=== PATIENT | female | born 1985 | race Caucasian/White ===

== ENCOUNTER → 2016-09-15 | Outpatient (REF) | payer OTHER ==
[~2016-09-15] MED LIST: BUPR150T11 PO; BUPR150T2 PO; BUPR75TA5 PO; Birth Control PO; EFFEXOR XR PO
[2016-09-15 19:43] LABS: ALBUMIN 3.3 GM/DL (3.2-5.2); ALBUMIN/GLOBULIN RATIO 0.92 (1.00-1.93); ALKALINE PHOSPHATASE 53 U/L (45-117); ALT/SGPT 23 U/L (12-78); ANION GAP 6 MEQ/L (8-16); AST/SGOT 14 U/L (15-37); BILIRUBIN,TOTAL 0.4 MG/DL (0.2-1.0); BLOOD UREA NITROGEN 8 MG/DL (7-18); CALCIUM LEVEL 8.5 MG/DL (8.5-10.1); CARBON DIOXIDE LEVEL 28 MEQ/L (21-32); CHLORIDE LEVEL 106 MEQ/L (98-107); CREATININE FOR GFR 0.86 MG/DL (0.55-1.02); GLOMERULAR FILTRATION RATE > 60.0 (>60); GLUCOSE, FASTING 78 MG/DL (70-105); SODIUM LEVEL 140 MEQ/L (136-145); TOTAL PROTEIN 6.9 GM/DL (6.4-8.2)
== END ==
LOC: M SFHCCLAY 13:46
PROVIDERS: ATTEND Nurse Practitioner Family
DX: R61 Generalized hyperhidrosis (principal)

== ENCOUNTER → 2016-10-08 | Outpatient (CLI) | payer OTHER ==
--- NOTE | 2016-10-14 08:05 | SLEEPHOME ---
DATE OF PROCEDURE: 10/08/2016 ORDERED BY: Liz Greenfield. INTERPRETATION: Diagnostic home sleep testing was performed due to concern for the obstructive sleep apnea syndrome in this patient with a history of snoring and nonrestorative sleep. For testing, a NOX-T3 respiratory monitoring device was used. Continuous record was made of pulse, oxygen saturation, air flow, chest and abdominal strain, and body position. 10 hours and 59 minutes of data were reviewed. There were 5 hours and 55 minutes marked as time in bed. During the interval marked time in bed, there were only 5 respiratory events identified of 10 seconds in duration or greater for a respiratory event index of 0.8 which is within normal limits. Patient's baseline pulse rate was 58 beats per minute. Pulse rate ranged 49-80. Baseline saturation 95%. Lowest oxygen desaturation 90%. Testing was performed in both the supine and non-supine positions. IMPRESSION: Abnormal diagnostic home sleep testing with no evidence of obstructive sleep apnea syndrome demonstrated.
== END ==
LOC: M SLEEP HO 14:25
PROVIDERS: ATTEND Nurse Practitioner Adult Health
DX: G47.30 Sleep apnea, unspecified (principal)

== ENCOUNTER → 2017-09-23 | Outpatient (CLI) | payer OTHER | LOC: M LAB 10:21 | DX: Z80.3 Family history of malignant neoplasm of breast (principal) | CPT/HCPCS: 36415 ==

== ENCOUNTER 2020-03-16 10:16 | Emergency (ER) | payer OTHER ==
[~2020-03-16] VITALS: Ht 154.9 cm; Wt 75.9 kg
[2020-03-16] MEDS ORDERED: ZOLO100T PO (10:29)
[2020-03-16] MEDS ORDERED: CYCL-707 PO (10:29)
[2020-03-16] MEDS ORDERED: NORC1TAB7 PO (10:29)
[2020-03-16] MEDS ORDERED: KETOROLAC 30 MG/ML 1ML VIAL IV ONE (11:30)
--- NOTE | 2020-03-16 13:28 | REPVR ---
PROCEDURE INFORMATION: Exam: MR Lumbar Spine Without Contrast. Exam date and time: 03/16/2020 12:52 PM Age: 34 years old Clinical indication: Low back pain; Patient HX: Per p/t, was lifting yesterday and had instant pain/spasms, HX of back issues; Additional info: Back pain/leg weakness TECHNIQUE: Imaging protocol: Multiplanar magnetic resonance images of the lumbar spine without intravenous contrast. COMPARISON: No relevant prior studies available. FINDINGS: Vertebrae: The lumbar vertebral bodies are normal in height,signal intensity and alignment.No acute fracture or dislocation is seen. Spinal epidural space: There is no evidence of epidural masses or hemorrhage. Spinal cord: The conus medullaris is normal. The cauda equina nerve roots demonstrate no crowding or displacement. L1-L2: There is no significant degenerative disc herniation.The spinal canal and neural foramina are patent and without significant stenosis. L2-L3: Mildly reduced in height and T2 signal indicating degeneration. Moderate posterior central herniation causing compression on the thecal sac with moderate central spinal canal stenosis. The facet joints demonstrate mild degenerative hypertrophy and sclerosis.There is mild bilateral foraminal stenosis. L3-L4: Mildly reduced in height and T2 signal indicating degeneration. Small posterior central protrusion with inferior migration causing mild indentation of the thecal sac. Mild facet arthropathy.There is no evidence of spinal canal narrowing. There is mild bilateral foraminal stenosis. L4-L5: Moderately reduced in height and T2 signal indicating degeneration. Mild degenerative endplate changes. Small diffuse posterior herniation, asymmetric towards the left. Mild facet arthropathy.There is no evidence of spinal canal narrowing. There is mild right foraminal stenosis. There is moderate left foraminal stenosis. L5-S1: Moderately reduced in height and T2 signal indicating degeneration. Moderate adjacent degenerative endplate changes. Small diffuse posterior herniation. Mild facet arthropathy.There is no evidence of spinal canal narrowing. There is mild bilateral foraminal stenosis. Soft tissues: The prevertebral soft tissues appear normal. IMPRESSION: MRI of the lumbar spine reveals multilevel degenerative spondylitic changes and degenerative disc disease as described above. Electronically signed by: Bairon Hauser On 03/16/2020 13:28:22 PM
[2020-03-16 14:23] VITALS: BP 100/59
== END 2020-03-16 14:25 | disposition home or self-care (01) ==
LOC: M ED 10:16
DX: M51.26 Other intervertebral disc displacement, lumbar region (principal); M51.36 Other intervertebral disc degeneration, lumbar region; M54.9 Dorsalgia, unspecified; G89.29 Other chronic pain; Z88.2 Allergy status to sulfonamides; Z88.1 Allergy status to other antibiotic agents; Z79.899 Other long term (current) drug therapy
CPT/HCPCS: 72148; 96374; 99284; J1885

== ENCOUNTER → 2022-08-21 | Outpatient (REF) | payer OTHER ==
[~2022-08-21] MED LIST changes: +CYCL-707 PO; +NORC1TAB7 PO; +ZOLO100T PO
[2022-08-21 17:29] LABS: HEMATOCRIT 37.2 % (36.0-47.0); HEMOGLOBIN 11.2 g/dl (12.0-15.5); MEAN CORPUSCULAR HEMOGLOBIN 27.1 pg (27.0-33.0); MEAN CORPUSCULAR HGB CONC 30.1 g/dl (32.0-36.5); MEAN CORPUSCULAR VOLUME 90.1 fl (80.0-96.0); PLATELET COUNT, AUTOMATED 323 10^3/uL (150-450); RED BLOOD COUNT 4.13 10^6/uL (4.00-5.40); WHITE BLOOD COUNT 7.5 10^3/uL (4.0-10.0)
[2022-08-21 17:53] LABS: FREE T4 0.87 NG/DL (0.89-1.76); VITAMIN B12 LEVEL 283 PG/ML (211-911)
[2022-08-21 17:54] LABS: THYROID STIMULATING HORMONE 1.922 uIU/ML (0.55-4.78)
[2022-08-21 17:56] LABS: IRON (FE) 33 UG/DL (50-170); PERCENT SATURATION 7.3 % (13.2-45.0); TOTAL IRON BINDING CAPACITY 453 UG/DL (250-425)
[2022-08-21 17:57] LABS: ALBUMIN 3.3 G/DL (3.2-5.2); ALKALINE PHOSPHATASE 69 U/L (46-116); ALT/SGPT < 9 U/L (7.0-40); AST/SGOT 13 U/L (<34); BILIRUBIN,TOTAL 0.6 MG/DL (0.3-1.2); BLOOD UREA NITROGEN 8 MG/DL (9-23); CALCIUM LEVEL 8.2 MG/DL (8.5-10.1); CARBON DIOXIDE LEVEL 26 MMOL/L (20-31); CHLORIDE LEVEL 107 MMOL/L (98-107); CHOLESTEROL LEVEL 161 MG/DL (<200); CHOLESTEROL RISK RATIO 2.58 (<5); CREATININE FOR GFR 0.72 MG/DL (0.55-1.30); GLOMERULAR FILTRATION RATE > 60.0 (>60); GLUCOSE, FASTING 84 MG/DL (60-100); HDL CHOLESTEROL 62.3 MG/DL (>40); LDL CHOLESTEROL 79.7 MG/DL (<100); NON-HDL-C 98.7 MG/DL; POTASSIUM SERUM 4.3 MMOL/L (3.5-5.1); PTH INTACT 88.3 PG/ML (18.5-88.0); SODIUM LEVEL 139 MMOL/L (136-145); TOTAL PROTEIN 6.8 G/DL (5.7-8.2); TRIGLYCERIDES LEVEL 95 MG/DL (<150)
[2022-08-21 18:25] LABS: HEMOGLOBIN A1c 5.4 % (4.0-6.0)
== END ==
LOC: M SFHCCLAY 09:49
PROVIDERS: ATTEND Family Medicine
DX: R61 Generalized hyperhidrosis (principal); M25.512 Pain in left shoulder; G89.29 Other chronic pain; K91.1 Postgastric surgery syndromes; Z98.84 Bariatric surgery status

== ENCOUNTER → 2022-10-30 | Outpatient (CLI) | payer OTHER | LOC: M CLY 11:12 | PROVIDERS: ATTEND Family Medicine | DX: G89.29 Other chronic pain (principal); M25.512 Pain in left shoulder ==

== ENCOUNTER → 2022-11-25 | Outpatient (CLI) | payer OTHER | LOC: M PLAIMG 14:34 | PROVIDERS: ATTEND Physician Assistant | DX: M25.512 Pain in left shoulder (principal) ==

== ENCOUNTER → 2022-12-30 | Outpatient (REF) | payer OTHER ==
[2022-12-30 18:24] LABS: BASO # 0.1 10^3/uL (0.0-0.2); BASO % 0.6 % (0.0-1.0); EOS # 0.1 10^3/uL (0.0-0.5); EOS % 0.9 % (0.0-3.0); HEMATOCRIT 40.3 % (36.0-47.0); HEMOGLOBIN 12.4 g/dl (12.0-15.5); LYMPH # 2.9 10^3/uL (1.5-5.0); LYMPH % 20.8 % (24.0-44.0); MEAN CORPUSCULAR HEMOGLOBIN 27.9 pg (27.0-33.0); MEAN CORPUSCULAR HGB CONC 30.8 g/dl (32.0-36.5); MEAN CORPUSCULAR VOLUME 90.6 fl (80.0-96.0); MONO % 7.3 % (2.0-8.0); NEUTROPHILS # 9.8 10^3/uL (1.5-8.5); NEUTROPHILS % 69.7 % (36.0-66.0); PLATELET COUNT, AUTOMATED 435 10^3/uL (150-450); RED BLOOD COUNT 4.45 10^6/uL (4.00-5.40)
[2022-12-30 18:46] LABS: PTH INTACT 59.5 PG/ML (18.5-88.0)
[2022-12-30 18:47] LABS: IRON (FE) 74 UG/DL (50-170); PERCENT SATURATION 18.9 % (13.2-45.0); TOTAL IRON BINDING CAPACITY 392 UG/DL (250-425)
[2022-12-30 19:38] LABS: HCG, SERUM QUALITATIVE NEGATIVE (NEGATIVE)
== END ==
LOC: M SFHCCLAY 11:09
PROVIDERS: ATTEND Family Medicine
DX: D72.829 Elevated white blood cell count, unspecified (principal); N91.1 Secondary amenorrhea; Z98.84 Bariatric surgery status

== ENCOUNTER → 2023-02-01 | Outpatient (REF) | payer OTHER ==
[2023-02-01 17:50] LABS: BASO # 0.1 10^3/uL (0.0-0.2); BASO % 0.9 % (0.0-1.0); EOS # 0.2 10^3/uL (0.0-0.5); HEMOGLOBIN 10.8 g/dl (12.0-15.5); LYMPH # 2.3 10^3/uL (1.5-5.0); LYMPH % 31.1 % (24.0-44.0); MEAN CORPUSCULAR HEMOGLOBIN 27.6 pg (27.0-33.0); MEAN CORPUSCULAR VOLUME 91.8 fl (80.0-96.0); MONO # 0.7 10^3/uL (0.0-0.8); MONO % 8.7 % (2.0-8.0); NEUTROPHILS # 4.2 10^3/uL (1.5-8.5); NEUTROPHILS % 56.8 % (36.0-66.0); PLATELET COUNT, AUTOMATED 347 10^3/uL (150-450); RED BLOOD COUNT 3.92 10^6/uL (4.00-5.40); WHITE BLOOD COUNT 7.5 10^3/uL (4.0-10.0)
== END ==
LOC: M SFHCCLAY 11:16
PROVIDERS: ATTEND Nurse Practitioner Family
DX: Z12.4 Encounter for screening for malignant neoplasm of cervix (principal); D72.9 Disorder of white blood cells, unspecified

== ENCOUNTER → 2023-02-05 | Outpatient (REF) | payer OTHER | LOC: M SFHCCLAY 16:58 | PROVIDERS: ATTEND Family Medicine | DX: F32.9 Major depressive disorder, single episode, unspecified (principal); D64.9 Anemia, unspecified ==

== ENCOUNTER 2023-04-18 19:26 | Emergency (ER) | payer OTHER, SELFPAY ==
[~2023-04-18] VITALS: Ht 154.9 cm; Wt 74.7 kg
[2023-04-18] MEDS ORDERED: DOXE25CA (19:32)
[2023-04-18] MEDS ORDERED: B-12100010 PO (19:32)
[2023-04-18 20:12] LABS: BASO % 0.3 % (0.0-1.0); EOS # 0.2 10^3/uL (0.0-0.5); HEMATOCRIT 34.8 % (36.0-47.0); HEMOGLOBIN 10.6 g/dl (12.0-15.5); LYMPH # 2.7 10^3/uL (1.5-5.0); LYMPH % 30.5 % (24.0-44.0); MEAN CORPUSCULAR HEMOGLOBIN 26.8 pg (27.0-33.0); MEAN CORPUSCULAR HGB CONC 30.5 g/dl (32.0-36.5); MEAN CORPUSCULAR VOLUME 87.9 fl (80.0-96.0); MONO # 0.6 10^3/uL (0.0-0.8); MONO % 7.2 % (2.0-8.0); NEUTROPHILS # 5.3 10^3/uL (1.5-8.5); NEUTROPHILS % 59.8 % (36.0-66.0); PLATELET COUNT, AUTOMATED 330 10^3/uL (150-450); RED BLOOD COUNT 3.96 10^6/uL (4.00-5.40); WHITE BLOOD COUNT 8.9 10^3/uL (4.0-10.0)
[2023-04-18 20:17] LABS: ERYTHROCYTE SEDIMENTATION RATE 16 mm/hr (0-20)
[2023-04-18 20:24] LABS: INR 1.15; PARTIAL THROMBOPLASTIN TIME 27.9 SECONDS (24.8-34.2); PROTHROMBIN TIME 14.4 SECONDS (12.5-14.5)
[2023-04-18 20:27] LABS: D-DIMER QUANT 0.34 ug/mL (<0.5)
[2023-04-18 20:34] LABS: C REACTIVE PROTEIN QUANTITATIV < 0.40 MG/DL (<1.0); CK-MB VALUE MASS < 1.0 NG/ML (<3.6); LIPASE 32 U/L (12-53)
[2023-04-18 20:36] LABS: ALBUMIN 3.5 G/DL (3.2-5.2); ALKALINE PHOSPHATASE 101 U/L (46-116); ALT/SGPT 15 U/L (7.0-40); AST/SGOT 23 U/L (<34); BILIRUBIN,DIRECT 0.2 MG/DL (<0.4); BILIRUBIN,TOTAL 0.5 MG/DL (0.3-1.2); TOTAL PROTEIN 6.8 G/DL (5.7-8.2)
[2023-04-18 20:38] LABS: FREE T4 0.88 NG/DL (0.89-1.76); THYROID STIMULATING HORMONE 0.973 uIU/ML (0.55-4.78)
[2023-04-18 20:44] LABS: CPK CREATINE PHOSPHOKINASE 125 U/L (34-145)
[2023-04-18 21:15] VITALS: BP 120/77; TEMP 98; O2SAT 99
== END 2023-04-18 21:25 | disposition home or self-care (01) ==
LOC: M ED 19:26
DX: R07.9 Chest pain, unspecified (principal); R00.1 Bradycardia, unspecified; R94.31 Abnormal electrocardiogram [ECG] [EKG]; Z98.84 Bariatric surgery status; Z88.2 Allergy status to sulfonamides

== ENCOUNTER 2024-03-05 19:22 | Emergency (ER) | payer BC, SELFPAY ==
[~2024-03-05] VITALS: Ht 157.5 cm; Wt 72.7 kg
[~2024-03-05 19:22] MED LIST changes: +B-12100010 PO; +DOXE25CA
[2024-03-05] MEDS ORDERED: BCP PO (19:43)
[2024-03-05 19:53] LABS: BASO % 0.5 % (0.0-1.0); EOS # 0.2 10^3/uL (0.0-0.5); EOS % 2.4 % (0.0-3.0); HEMATOCRIT 34.5 % (36.0-47.0); HEMOGLOBIN 10.4 g/dl (12.0-15.5); LYMPH # 2.6 10^3/uL (1.5-5.0); LYMPH % 30.5 % (24.0-44.0); MEAN CORPUSCULAR HEMOGLOBIN 26.7 pg (27.0-33.0); MEAN CORPUSCULAR HGB CONC 30.1 g/dl (32.0-36.5); MEAN CORPUSCULAR VOLUME 88.5 fl (80.0-96.0); MONO # 0.5 10^3/uL (0.0-0.8); MONO % 6.1 % (2.0-8.0); NEUTROPHILS # 5.1 10^3/uL (1.5-8.5); NEUTROPHILS % 60.3 % (36.0-66.0); PLATELET COUNT, AUTOMATED 342 10^3/uL (150-450); WHITE BLOOD COUNT 8.4 10^3/uL (4.0-10.0)
[2024-03-05 20:16] LABS: CK-MB VALUE MASS < 1.0 NG/ML (<3.6)
[2024-03-05 20:18] LABS: ALBUMIN 3.8 G/DL (3.2-5.2); ALKALINE PHOSPHATASE 84 U/L (35-104); ALT/SGPT 15 U/L (7.0-40); AST/SGOT 14 U/L (<34); BILIRUBIN,DIRECT 0.3 MG/DL (<0.4); BILIRUBIN,TOTAL 0.8 MG/DL (0.3-1.2); BLOOD UREA NITROGEN 15 MG/DL (9-23); CALCIUM LEVEL 9.2 MG/DL (8.5-10.1); CARBON DIOXIDE LEVEL 24 MMOL/L (20-31); CHLORIDE LEVEL 109 MMOL/L (98-107); CPK CREATINE PHOSPHOKINASE 88 U/L (34-145); CREATININE FOR GFR 0.71 MG/DL (0.55-1.30); GLOMERULAR FILTRATION RATE > 60.0 (>60); GLUCOSE, FASTING 99 MG/DL (60-100); MB/CK RELATIVE INDEX 1.13 (< OR =4); POTASSIUM SERUM 4.4 MMOL/L (3.5-5.1); SODIUM LEVEL 141 MMOL/L (136-145); TOTAL PROTEIN 7.1 G/DL (5.7-8.2)
[2024-03-05 20:25] LABS: HCG, SERUM QUALITATIVE NEGATIVE (NEGATIVE)
[2024-03-05] MEDS ORDERED: ISOVUE-370 76% 100ML VIAL As Ordered ONE (20:30)
[2024-03-05] MEDS: ALBUTEROL SULFATE 2.5MG/0.5ML INH NEB SOLN INH ONE (20:48)
[2024-03-05] MEDS: methylPREDNISolone 40MG 1ML VIAL IV ONE (22:30)
[2024-03-05] MEDS ORDERED: PRED20TA PO (22:34)
[2024-03-05 22:53] VITALS: BP 106/56; TEMP 98; O2SAT 98
== END 2024-03-05 22:56 | disposition home or self-care (01) ==
LOC: M ED 19:22
DX: R06.00 Dyspnea, unspecified (principal); R00.1 Bradycardia, unspecified; J45.909 Unspecified asthma, uncomplicated; F10.10 Alcohol abuse, uncomplicated; Z88.1 Allergy status to other antibiotic agents; Z88.2 Allergy status to sulfonamides; Z88.8 Allergy status to other drugs, medicaments and biological substances; Z79.52 Long term (current) use of systemic steroids; Z79.899 Other long term (current) drug therapy
CPT/HCPCS: 71045; 71275; 80048; 80076; 82550; 82553; 84484; 84703; 85025; 87486; 87581; 87633; 87798; 93005; 94640; 96374; 99284; J2919; Q9967

== ENCOUNTER → 2024-05-11 | Outpatient (REF) | payer BC ==
[~2024-05-11] MED LIST changes: +BCP PO; +PRED20TA PO
[2024-05-11 19:11] LABS: BASO # 0.1 10^3/uL (0.0-0.2); EOS # 0.2 10^3/uL (0.0-0.5); EOS % 2.7 % (0.0-3.0); HEMATOCRIT 37.6 % (36.0-47.0); HEMOGLOBIN 11.6 g/dl (12.0-15.5); LYMPH # 2.8 10^3/uL (1.5-5.0); LYMPH % 34.9 % (24.0-44.0); MEAN CORPUSCULAR HEMOGLOBIN 27.3 pg (27.0-33.0); MEAN CORPUSCULAR HGB CONC 30.9 g/dl (32.0-36.5); MEAN CORPUSCULAR VOLUME 88.5 fl (80.0-96.0); MONO # 0.6 10^3/uL (0.0-0.8); MONO % 7.2 % (2.0-8.0); NEUTROPHILS # 4.4 10^3/uL (1.5-8.5); NEUTROPHILS % 53.6 % (36.0-66.0); PLATELET COUNT, AUTOMATED 361 10^3/uL (150-450); RED BLOOD COUNT 4.25 10^6/uL (4.00-5.40); WHITE BLOOD COUNT 8.1 10^3/uL (4.0-10.0)
[2024-05-11 19:32] LABS: TOTAL IRON BINDING CAPACITY 361 UG/DL (250-425)
[2024-05-11 19:33] LABS: ALBUMIN 3.5 G/DL (3.2-5.2); ALKALINE PHOSPHATASE 67 U/L (35-104); ALT/SGPT 13 U/L (7.0-40); AST/SGOT 10 U/L (<34); BILIRUBIN,TOTAL 0.6 MG/DL (0.3-1.2); BLOOD UREA NITROGEN 11 MG/DL (9-23); CALCIUM LEVEL 8.5 MG/DL (8.5-10.1); CARBON DIOXIDE LEVEL 27 MMOL/L (20-31); CHLORIDE LEVEL 106 MMOL/L (98-107); CHOLESTEROL LEVEL 142 MG/DL (<200); CHOLESTEROL RISK RATIO 3.08 (<5); CREATININE FOR GFR 0.66 MG/DL (0.55-1.30); GLOMERULAR FILTRATION RATE > 60.0 (>60); GLUCOSE, FASTING 81 MG/DL (60-100); HDL CHOLESTEROL 46.1 MG/DL (>40); IRON (FE) 29 UG/DL (50-170); LDL CHOLESTEROL 79.9 MG/DL (<100); NON-HDL-C 95.9 MG/DL; POTASSIUM SERUM 3.7 MMOL/L (3.5-5.1); SODIUM LEVEL 140 MMOL/L (136-145); TOTAL PROTEIN 6.8 G/DL (5.7-8.2); TRIGLYCERIDES LEVEL 80 MG/DL (<150); VITAMIN B12 LEVEL 402 PG/ML (211-911)
[2024-05-11 19:34] LABS: FERRITIN 4.9 NG/ML (7.3-270.7); FOLATE 15.9 NG/ML (>5.4)
[2024-05-11 19:38] LABS: HEMOGLOBIN A1c 5.3 % (4.0-6.0)
== END ==
LOC: M SFHCCLAY 13:08
PROVIDERS: ATTEND Physician Assistant
DX: F32.9 Major depressive disorder, single episode, unspecified (principal); D64.9 Anemia, unspecified; J45.909 Unspecified asthma, uncomplicated; Z98.84 Bariatric surgery status; W57.XXXD Bitten or stung by nonvenomous insect and other nonvenomous arthropods, subsequent encounter

== ENCOUNTER → 2024-05-19 | Outpatient (CLI) | payer BC | LOC: M WHC 10:02 | PROVIDERS: ATTEND Physician Assistant | DX: Z12.31 Encounter for screening mammogram for malignant neoplasm of breast (principal) ==

== ENCOUNTER 2024-05-23 11:31 | Outpatient (CLI) | payer BC ==
[~2024-05-23] VITALS: Ht 157.5 cm; Wt 71.0 kg
[~2024-05-23 11:31] MED LIST changes: +ALBUTEROL SULFATE 2.5MG/0.5ML INH NEB SOLN INH PRN; +EPINEPHrine INJ 1 MG/ML 1ML AMP IM PRN; +diphenhydrAMINE 50MG/ML VIAL IV PRN; +methylPREDNISolone 125MG 2ML VIAL IV PRN
[2024-05-23 12:00] VITALS: BP 121/65; O2SAT 100
[2024-05-23] MEDS: IRON SUCROSE 25 MG in NS 23.75 ML IV ONE (12:16)
[2024-05-23] MEDS: IRON SUCROSE 475 MG in NS 250 ML IV ONE (12:52)
[2024-05-23 14:10] VITALS: BP 125/76; O2SAT 98
[2024-05-23 15:00] VITALS: BP 126/89; O2SAT 96
[2024-05-23 16:49] VITALS: BP 133/77; O2SAT 99
== END 2024-05-23 17:00 ==
LOC: M INFU 11:31
PROVIDERS: ATTEND Physician Assistant
DX: D50.9 Iron deficiency anemia, unspecified (principal); Z88.1 Allergy status to other antibiotic agents; Z88.2 Allergy status to sulfonamides; Z88.8 Allergy status to other drugs, medicaments and biological substances
CPT/HCPCS: 96365; 96366; J1756

== ENCOUNTER → 2024-05-30 | Outpatient (CLI) | payer BC ==
[~2024-05-30] MED LIST changes: -ALBUTEROL SULFATE 2.5MG/0.5ML INH NEB SOLN INH PRN; -EPINEPHrine INJ 1 MG/ML 1ML AMP IM PRN; -diphenhydrAMINE 50MG/ML VIAL IV PRN; -methylPREDNISolone 125MG 2ML VIAL IV PRN
== END ==
LOC: M WHC 13:03
PROVIDERS: ATTEND Physician Assistant
DX: Z12.31 Encounter for screening mammogram for malignant neoplasm of breast (principal)

== ENCOUNTER → 2024-06-01 | Outpatient (REF) | payer BC ==
[2024-06-01 18:53] LABS: HEMATOCRIT 39.3 % (36.0-47.0); HEMOGLOBIN 11.7 g/dl (12.0-15.5); MEAN CORPUSCULAR HEMOGLOBIN 27.1 pg (27.0-33.0); MEAN CORPUSCULAR HGB CONC 29.8 g/dl (32.0-36.5); PLATELET COUNT, AUTOMATED 357 10^3/uL (150-450); RED BLOOD COUNT 4.32 10^6/uL (4.00-5.40); WHITE BLOOD COUNT 6.1 10^3/uL (4.0-10.0)
[2024-06-01 19:21] LABS: PERCENT SATURATION 28.1 % (13.2-45.0)
[2024-06-01 19:23] LABS: FERRITIN 130.9 NG/ML (7.3-270.7)
== END ==
LOC: M SFHCCLAY 14:14
PROVIDERS: ATTEND Physician Assistant
DX: D50.9 Iron deficiency anemia, unspecified (principal)

== ENCOUNTER 2024-06-06 11:05 | Outpatient (CLI) | payer BC ==
[~2024-06-06] VITALS: Ht 154.9 cm; Wt 69.0 kg
[~2024-06-06 11:05] MED LIST changes: +ALBUTEROL SULFATE 2.5MG/0.5ML INH NEB SOLN INH PRN; +EPINEPHrine INJ 1 MG/ML 1ML AMP IM PRN; +diphenhydrAMINE 50MG/ML VIAL IV PRN
[2024-06-06 11:30] VITALS: BP 119/61; O2SAT 100
[2024-06-06] MEDS: IRON SUCROSE 500 MG in NS 250 ML OVER 4 HRS IV ONE (11:50)
[2024-06-06 13:00] VITALS: BP 119/67; O2SAT 99
[2024-06-06 14:00] VITALS: BP 122/74; O2SAT 99
[2024-06-06] MEDS: methylPREDNISolone 125MG 2ML VIAL IV PRN (14:35)
[2024-06-06 15:30] VITALS: BP 120/63; O2SAT 97
== END 2024-06-06 15:30 ==
LOC: M INFU 11:05
PROVIDERS: ATTEND Physician Assistant
DX: D50.9 Iron deficiency anemia, unspecified (principal); Z88.1 Allergy status to other antibiotic agents; Z88.2 Allergy status to sulfonamides; Z88.8 Allergy status to other drugs, medicaments and biological substances
CPT/HCPCS: 96365; 96366; 96375; J1756; J2919

== ENCOUNTER → 2024-09-06 | Outpatient (REF) | payer BC ==
[~2024-09-06] MED LIST changes: -ALBUTEROL SULFATE 2.5MG/0.5ML INH NEB SOLN INH PRN; -EPINEPHrine INJ 1 MG/ML 1ML AMP IM PRN; -diphenhydrAMINE 50MG/ML VIAL IV PRN
[2024-09-06 13:10] LABS: ALT/SGPT 16 U/L (7.0-40); AST/SGOT 20 U/L (<34); CALCIUM LEVEL 8.9 MG/DL (8.5-10.1); CARBON DIOXIDE LEVEL 28 MMOL/L (20-31); CHLORIDE LEVEL 105 MMOL/L (98-107); CREATININE FOR GFR 0.66 MG/DL (0.55-1.30); GLOMERULAR FILTRATION RATE > 90.0 (>60); POTASSIUM SERUM 3.6 MMOL/L (3.5-5.1); PTH INTACT 35.3 PG/ML (18.5-88.0); SODIUM LEVEL 143 MMOL/L (136-145)
== END ==
LOC: M SFHCCLAY 09:27
PROVIDERS: ATTEND Physician Assistant
DX: D50.9 Iron deficiency anemia, unspecified (principal); F32.9 Major depressive disorder, single episode, unspecified; J45.909 Unspecified asthma, uncomplicated; Z98.84 Bariatric surgery status; Z12.31 Encounter for screening mammogram for malignant neoplasm of breast

== ENCOUNTER → 2025-01-26 | Outpatient (CLI) | payer BC | LOC: M SOG 07:58 | PROVIDERS: ATTEND Physician Assistant | DX: M25.511 Pain in right shoulder (principal); M25.512 Pain in left shoulder ==